=== PATIENT | female | born 1970 | race Caucasian/White ===

== ENCOUNTER 2017-03-29 13:31 | Emergency (ER) | payer OTHER ==
[~2017-03-29] VITALS: Ht 172.7 cm; Wt 72.7 kg
[2017-03-29 13:40] VITALS: BP 109/74; PULSE 109; RESP 18; O2SAT 95
--- NOTE | 2017-03-29 13:43 | ED.REPORT ---
HPI-Overdose/Alcohol Toxicity Date of Service March 29, 2017 ED Provider: The patient is an otherwise healthy female who was brought to the emergency department by EMS after her found her to be minimally responsive prior to arrival. The patient recently had a dental procedure and was in more pain than normal today. She took her normal chronic pain medication (2 tabs oxycodone 5 mg) at 1030 this morning and then took 3 more tabs shortly after. Medics administered Narcan which drastically improved the patient's condition. She is awake and able to answer questions at this time. She does complain of a minimal headache. Nursing Notes Stated Complaint: OVERDOSE Chief Complaint: Substance Abuse Nursing Notes Reviewed: Yes Allergies: Coded Allergies: No Known Allergies (Unverified , 03/29/17) General Time Seen by Provider: 13:50 Chief Complaint Ingestion, drug and amt (oxycodone, 25 mg in several hours) Modifying Factors: Accidental Hx Obtained From: Patient, EMS Arrived By: Ambulance Onset Occurred: 1 - 4 hours ago Symptom Duration: Duration unknown Progression Since Onset: Resolved Severity: Current: No pain currently Severity: Maximum: No pain Recent Healthcare: No recent hospitalization Similar Sx Previous: No Past Medical History Past Medical History Dental infection Past Surgical History Back surgery Social History Other Social History: Good social support, , Local resident Ambulatory Status Independent Review of Systems Review of Systems Note: +sleepiness, decreased responsiveness Neurologic: Reports: Change LOC, Headache Complete sys rev & neg: except as marked. Physical Exam Initial Vital Signs Vital Signs (First) Date Time Temp Pulse Resp B/P Pulse Ox O2 Delivery O2 Flow Rate FiO2 03/29/17 13:40 37.4 109 18 109/74 95 Room Air Initial VS: Reviewed Head / Eyes: Atraumatic, Normocephalic, PERRL ENT: Mucous membranes moist, Conjunctiva normal, No scleral icterus Neck: Supple, Non-tender, Full range of motion Lymphatic: No lymphadenopathy Extremities: Vascular intact, Neuro intact, No swelling, No tenderness Skin: Warm, Dry, No cyanosis General/Constitutional: Awake, Alert Respiratory / Chest: Atraumatic, Breath sounds NL, Breath sounds = bilat, No respiratory distress, No rales, No rhonchi, No wheezing Cardiovascular: Heart rate NL, Regular rhythm, Heart sounds NL, Cap refill not delayed, Peripheral circulation NL Abdomen: Atraumatic, Soft, Non-tender, No guarding, No rebound Neurologic: Oriented X3, Speech NL, No motor deficits, No sensory deficits Psychiatric: Affect NL, Mood NL, Not suicidal, Not homicidal Re-Eval/Medical Decision Med Decision/Clinical Course Overall the patient had a concerning clinical history today which was an overdose which required Narcan for reversal. After my bedside evaluation of her and discussion of our plan to monitor her for a period of time due to her recent Narcan use, she seemed pleasant. Shortly after our discussion, I was notified by staff that she eloped from the ER. Her was notified. Source of Hx: Old records, EMS Re-Evaluation/Progress #1: Time of Eval: 14:10 Re-Evaluation/Progress Note: The patient is not in her bed, she may have eloped. Re-Evaluation/Progress #2: Time of Eval: 14:33 Re-Evaluation/Progress Note: The patient has eloped. Counseled Regarding: Diagnosis, Need for follow-up, When/why to return to ED Discharge & Departure Impression: Primary Impression: Accidental overdose Encounter type: initial encounter Qualified Code: T50.901A - Poisoning by unspecified drugs, medicaments and biological substances, accidental ( unintentional), initial encounter Disposition: AGAINST MEDICAL ADVICE (eloped) Discharge Condition All VS Reviewed: Yes Condition: Stable Referrals: Carroll Bernardo MD (PCP) Scribe Attestation Portions of this note were transcribed by La Nena Ventura. I, Dr. Glasgow personally performed the history, physical exam and medical decision-making; I reviewed and confirmed the accuracy of the information in the transcribed note. Signed by: Katalina Lyons, 03/29/2017 at 1440. copies to: Carroll Bernardo MD, Timothy aCssy OBRIEN March 29, 2017 13:43 La Nena Ventura March 29, 2017 13:56
== END 2017-03-29 14:10 | disposition left against medical advice (07) ==
LOC: EDBD 13:31 → SED 13:31
DX: T40.2X1A Poisoning by other opioids, accidental (unintentional), initial encounter (principal); X58.XXXA Exposure to other specified factors, initial encounter; Y93.89 Activity, other specified; Y92.9 Unspecified place or not applicable; Y99.8 Other external cause status

== ENCOUNTER 2017-03-29 19:10 | Emergency (ER) | payer OTHER ==
--- NOTE | 2017-03-29 19:22 | ED.REPORT ---
HPI-General Illness Date of Service March 29, 2017 ED Provider: Dr. Combs Pt is a 46 y/o female w/ a hx of opiate abuse previously taking Suboxone presenting to the ED with her due to possible opiate overdose which occurred about 30 minutes ago. The patient was seen in the [facility] ED at 13:50 earlier today due to decreased level of consciousness. Her brought her in at that time and the history obtained indicated that she recently had a dental procedure for which she was prescribed oxycodone and was in more pain than normal today. She took her normal chronic pain medication (2 tabs oxycodone 5 mg) at 10:30 this morning and then took 3 more tabs shortly after. Medics administered Narcan which drastically improved the patient's condition. She was awake and able to answer questions by time of arrival and her only complaint was of a mild headache. The plan was to observe her for some hours but shortly after the interview she eloped. She apparently walked 2 blocks from the hospital to her home. The brought her in for this visit because of similar decreased responsiveness and unsteady gait. He does not know if she took more of the oxycodone but believes this is likely due to the similar presentation. He estimates the onset of current symptoms being 30 minutes prior to arrival. The thinks this incident was retaliation for him drinking after being sober from alcohol for a long time. She apparently stops taking Suboxone when she relapses. Further history was obtained after Narcan was administered. She apparently took 7x 30 mg oxycodone that she bought in [place] along with 2 others that she is uncertain whether are oxycodone or OxyContin. Further/personal history unable to be obtained secondary to current mental status. Nursing Notes Stated Complaint: POSSIBLE OD Chief Complaint: Substance Abuse Nursing Notes Reviewed: Yes Allergies: Coded Allergies: No Known Allergies (Unverified , 03/29/17) General Time Seen by MD: 19:24 Chief Complaint Other (possible OD) Hx Obtained From: Patient Unable to Obtain Hx: Patient condition, Mental status Arrived By: Walk-in Past Medical History Past Medical History Dental infection Hx opiate abuse previously taking Suboxone Past Surgical History Back surgery Smoking History Unknown if Ever Smoker Social History Opiate addiction Other Social History: Good social support, , Local resident Ambulatory Status Independent Review of Systems Unable to Obtain ROS Patient condition, Mental status Physical Exam Vital Signs Vital Signs Date Time Temp Pulse Resp B/P Pulse Ox O2 Delivery O2 Flow Rate FiO2 03/29/17 20:48 36.8 81 17 109/64 97 Room Air 03/29/17 20:21 76 17 100/61 98 Room Air 03/29/17 19:25 103 14 130/73 92 Room Air Initial VS: Reviewed ENT: Mucous membranes moist, Conjunctiva normal, No scleral icterus Neck: Supple, Full range of motion Respiratory: Breath sounds normal, Clear to auscultation, No respiratory distress Abdomen / GI: Soft, Non-tender, No guarding, No rebound, No distention Extremities: Vascular intact, Neuro intact, No swelling, No tenderness General/Constitutional: Awake, No acute distress, Cooperative, Not toxic appearing Responds to direct questions by answering yes and no. Does not provide history. Head / Eyes: Atraumatic, Normocephalic Pupils pinpoint Cardiovascular: Regular rhythm, Heart sounds NL, No gallop, No murmurs, No rubs Heart Rate / Rhythm: Positive: Tachycardia (mild) Skin: Atraumatic, Color NL, No rash No track whiting Neurologic: No motor deficits Responds to direct questions by answering yes and no Does not provide history PSYCH: Unable to assess Interpretation & Diagnostics Lab Results Interpretation Test 03/29/17 19:30 Hold Purple Top Tube Received (Received) Hold Blue Top Tube Received (Received) Hold [place] Top Tube Received (Received) Re-Eval/Medical Decision Med Decision/Clinical Course Patient to sleep AMA. Very specific instructions on risks of and complications of chronic hypoxia reviewed. Did try to give her a packet of intranasal Narcan to have at home. She left prior to this arriving from the pharmacy Time of Eval: 20:28 Re-Evaluation/Progress Note: Pt rechecked. Informed pt of need for admission. Pt understands and agrees with plan for admission. All questions addressed. Time of Eval: 20:58 Re-Evaluation/Progress Note: Patient now wants to leave AMA. Will have her sign an AMA form. Routine discharge instructions and RTER warnings given. Consultation : Referral / Consult Name: Gaetano Armenta MD Consulted With: Hospitalist Call Returned at: 20:27 Supervisor Vacuum [employer]: Will see patient, Agrees with eval, Agrees with plan, Accepts admit Counseled Regarding: Diagnosis, Lab results, Need for admission Discharge & Departure Primary Impression: Narcotic overdose Encounter type: initial encounter Injury intent: undetermined intent Qualified Code: T40.604A - Poisoning by unspecified narcotics, undetermined, initial encounter Disposition: AGAINST MEDICAL ADVICE Discharge Condition All VS Reviewed: Yes Condition: Stable Patient Instructions: Opioid Overdose (ED) Additional Instructions: You chose to leave against medical advice today. You should avoid narcotics. You have been given a narcotic kit. Should you have trouble breathing you can consider using this and your can help. Return to the emergency department for any new or worsening symptoms. Referrals: Carroll Bernardo MD (PCP) Scribe Attestation Portions of this note were transcribed by Igor Chakraborty. I, Dr. Combs personally performed the history, physical exam and medical decision-making; I reviewed and confirmed the accuracy of the information in the transcribed note. Signed by Katalina Vieyra, 03/29/171999 copies to: Carroll Bernardo MD, Shawna L MD March 29, 2017 19:22 IGOR CHAKRABORTY March 29, 2017 19:30
[2017-03-29 19:25] VITALS: BP 130/73; PULSE 103; RESP 14; O2SAT 92
[2017-03-29 20:21] VITALS: BP 100/61; PULSE 76; RESP 17; O2SAT 98
[2017-03-29 20:48] VITALS: BP 109/64; PULSE 81; RESP 17; O2SAT 97
[2017-03-29] MEDS ORDERED: _Naloxone 2 mg/2 mL 2 Syringe Kit (NASAL USE) NASAL PRN (20:55)
[2017-03-29] MEDS ORDERED: Polyethylene Glycol (PEG) 17 Gm Powder PO PRN (21:00)
[2017-03-29] MEDS ORDERED: Ondansetron 2 mg/mL 2 mL Inj IVPUSH PRN (21:00)
[2017-03-29] MEDS ORDERED: Alum-Mag Hydrox-Simeth 30 mL Suspension PO PRN (21:00)
--- NOTE | 2017-03-29 21:09 | PCM.HPMED ---
Subjective Date of Service March 29, 2017 Primary Provider: Admitting Physician: Primary Care Physician: Carroll Bernardo MD Attending Physician: Admit Status: From the Emergency Department Chief Complaint: Substance Abuse History of Present Illness: Per ED note: Pt is a 46 y/o female w/ a hx of opiate abuse previously taking Suboxone presenting to the ED with her due to possible opiate overdose which occurred about 30 minutes ago. The patient was seen in the [facility] ED at 13:50 earlier today due to decreased level of consciousness. Her brought her in at that time and the history obtained indicated that she recently had a dental procedure for which she was prescribed oxycodone and was in more pain than normal today. She took her normal chronic pain medication (2 tabs oxycodone 5 mg) at 10:30 this morning and then took 3 more tabs shortly after. Medics administered Narcan which drastically improved the patient's condition. She was awake and able to answer questions by time of arrival and her only complaint was of a mild headache. The plan was to observe her for some hours but shortly after the interview she eloped. She apparently walked 2 blocks from the hospital to her home. The brought her in for this visit because of similar decreased responsiveness and unsteady gait. He does not know if she took more of the oxycodone but believes this is likely due to the similar presentation. He estimates the onset of current symptoms being 30 minutes prior to arrival. The thinks this incident was retaliation for him drinking after being sober from alcohol for a long time. She apparently stops taking Suboxone when she relapses. Further history was obtained after Narcan was administered. She apparently took 7x 30 mg oxycodone that she bought in [place] along with 2 others that she is uncertain whether are oxycodone or OxyContin. Further/personal history unable to be obtained secondary to current mental status. Patient left AGAINST MEDICAL ADVICE prior to interview. H&P document canceled Allergies Coded Allergies: No Known Allergies (Unverified , 03/29/17) Home Medications Per outpatient records medications last updated 09/27/2016 Celexa 10 mg tablet daily Zyrtec PMH Dental infection History of opiate abuse, previously taking Suboxone Outpatient records last updated 09/27/2016 Cervicalgia Fatigue Back pain Dysthymia Hep C, chronic Right shoulder bursitis Depression Surgical History Back surgery Family History Per outpatient records: Father age 50 colon cancer Paternal grandfather Parkinson's disease Mother age 58 from stroke, also suffered from thyroid disorder and heart problems Paternal grandmother Parkinson's disease Social History Hx Alcohol Use: No Hx Substance Use: Yes Hx Tobacco Use: Yes Exam Vital Signs Vital Sign - Last Date Time Temp Pulse Resp B/P Pulse Ox O2 Delivery O2 Flow Rate FiO2 03/29/17 20:48 36.8 81 17 109/64 97 Room Air MARIANO IRWIN DO March 29, 2017 21:09
== END 2017-03-29 21:25 | disposition admitted as inpatient to this hospital (09) ==
LOC: SED 19:10
DX: T40.2X4A Poisoning by other opioids, undetermined, initial encounter (principal); Y93.89 Activity, other specified; Y92.89 Other specified places as the place of occurrence of the external cause; Y99.8 Other external cause status; R26.81 Unsteadiness on feet; R46.4 Slowness and poor responsiveness; Z53.20 Procedure and treatment not carried out because of patient's decision for unspecified reasons
CPT/HCPCS: 82948; 96374; 99284; J2310

== ENCOUNTER 2017-04-02 22:20 | Emergency (ER) | payer OTHER ==
[~2017-04-02] VITALS: Ht 172.7 cm; Wt 77.3 kg
[2017-04-02 22:29] VITALS: BP 122/78; PULSE 89; RESP 16; O2SAT 98
[2017-04-02 22:30] VITALS: BP 123/77; PULSE 85; RESP 15; O2SAT 93
[2017-04-02] MEDS ORDERED: 0.9% Sodium Chloride 1,000 ML IV ONE (22:42)
[2017-04-02] MEDS ORDERED: Naloxone 0.4 mg/mL 10 mL Inj IM PRN (22:45)
[2017-04-02 22:53] LABS: Mean Corpuscular Hemoglobin 30.3 pg (27.0-35.0); Mean Corpuscular Volume 92.6 fL (81-100)
--- NOTE | 2017-04-02 22:54 | ED.REPORT ---
HPI-Overdose/Alcohol Toxicity Date of Service Apr 02, 2017 ED Provider: Vijay Kebede MD The patient is a 46 year old female with a history of opioid abuse recently on Suboxone who presents to the ED accompanied by her after taking 120mg oxycodone 2-3 hours prior to arrival. The patient presents with slurred speech and decreased level of consciousness. She reportedly bought the oxycodone "off the street." The patient has stopped taking Suboxone since she recently relapsed on oxycodone. Her believes the patient relapsed because she was upset over his recent episode of drinking, which took place after he had been sober for some time. The patient was recently seen in the ED on 03/29/17 for a narcotic overdose which was reversed with Naloxone prior to the patient leaving AMA. Nursing Notes Stated Complaint: POSSIBLE OVERDOSE Chief Complaint: Substance Abuse Nursing Notes Reviewed: Yes Allergies: Coded Allergies: No Known Allergies (Unverified , 04/02/17) General Time Seen by Provider: 22:41 Chief Complaint Drug overdose Modifying Factors: Accidental Hx Obtained From: Patient, Spouse Arrived By: Walk-in Onset Occurred: 1 - 4 hours ago Symptom Duration: Since onset Severity: Current: No pain currently Severity: Maximum: No pain Pertinent Negative: Relieved by nothing Related History: Reports: Substance abuse Immunizations: Tetanus up to date Recent Healthcare: Recent doctor visit Similar Sx Previous: Yes Past Medical History Past Medical History Dental infection Hx opiate abuse on Suboxone Opioid overdose Past Surgical History Back surgery Social History Opiate addiction Other Social History: Good social support, , Local resident Ambulatory Status Independent Review of Systems Unable to Obtain ROS Patient condition, Mental status Physical Exam Initial Vital Signs Vital Signs (First) Date Time Temp Pulse Resp B/P Pulse Ox O2 Delivery O2 Flow Rate FiO2 04/02/17 22:29 36.8 89 16 122/78 98 Room Air Initial VS: Reviewed Neck: Supple, Full range of motion General/Constitutional: Well hydrated, Well nourished Patient frequently nods off Respiratory / Chest: Breath sounds NL, Breath sounds = bilat, No respiratory distress Normal respiration rate and oxygen saturation Cardiovascular: Heart rate NL, Regular rhythm, Heart sounds NL Speech: Positive: Slurred NEUROLOGIC: Frequently nods off Head / Eyes: Atraumatic, Normocephalic Pupils: Positive: Pinpoint Skin: Warm, Dry No injection sites or tracks Interpretation & Diagnostics URINE DRUG SCREEN: + Oxycodone Otherwise Negative Lab Results Interpretation Result Diagram: 04/02/17223404/02/17 2235 Test 04/02/17 22:35 04/02/17 23:10 White Blood Count 7.8th/mm3 (3.8-10.1) Red Blood Count 4.06mil/mm3 (3.90-5.20) Hemoglobin 12.3g/dL (12.0-15.6) Hematocrit 37.6% (35.0-46.0) Mean Corpuscular Volume 92.6fL (81-100) Mean Corpuscular Hemoglobin 30.3pg (27.0-35.0) Mean Corpuscular Hemoglobin Concent 32.7% (32.0-37.0) Red Cell Distribution Width 13.1% (12.3-15.4) Platelet Count 212bil/L (150-400) Hold Purple Top Tube Received (Received) Hold Blue Top Tube Received (Received) Sodium Level 141mEq/L (134-144) Potassium Level 4.2mEq/L (3.5-5.2) Chloride Level 102mEq/L (97-108) Carbon Dioxide Level 27mmol/L (18-29) Blood Urea Nitrogen 19mg/dL (6-24) Creatinine 0.80mg/dL (0.57-1.00) Estimat Glomerular Filtration Rate 111mL/min (>59) Glucose Level 126mg/dL (60-99) Calcium Level 9.7mg/dL (8.5-10.1) Total Bilirubin 0.3mg/dL (0.0-1.2) Aspartate Amino Transf (AST/SGOT) 37U/L (0-50) Alanine Aminotransferase (ALT/SGPT) 27U/L (0-32) Alkaline Phosphatase 70U/L (25-150) Total Protein 7.0g/dL (6.4-8.4) Albumin 4.2g/dL (3.4-5.0) Hold Red Top Tube Received (Received) Hold [employer] Top Tube Received (Received) Salicylates Level < 3.0ug/mL (30-250) Acetaminophen Level < 15.0ug/mL Rx (10-25) Alcohols < 10mg/dL (0-10) Hold Urine Received (Received) Lab Results Interpretation: Drug screen positive for opiates consistent with history of oxycodone ingestion ECG Interpretation ECG Interpretation: Sinus rhythm rate 84 Probable left atrial enlargement Time: 22:50 Interpreted by: ED physician Re-Eval/Medical Decision Med Decision/Clinical Course 46-year-old female who overdosed on 120 mg of immediate release oxycodone about 3 hours ago. She is now confused, semi-obtunded, and her pupils are pinpoint. She was given a dose of IV Narcan 0.4 mg with complete clearing of her symptoms. She is an outpatient [facility]. She has sufficient Suboxone at home to resume that medication and was encouraged to do so after 24 hours. She will return to the emergency room if there are further problems. She is released with her significant other who will observe her closely over the next several hours. Source of Hx: Old records Re-Evaluation/Progress : Time of Eval: 23:24 Patient Status: Condition improved Re-Evaluation/Progress Note: Patient is feeling better after the Narcan and requests to be discharged. Discussed with patient lab results, diagnosis, and plan for discharge. Follow-up and return to the ER instructions given. Patient agrees with plan for care and all questions were addressed. Counseled Regarding: Diagnosis, Lab results, Need for follow-up, When/why to return to ED Discharge & Departure Impression: Primary Impression: Narcotic overdose Encounter type: initial encounter Injury intent: accidental or unintentional Qualified Code: T40.601A - Poisoning by unspecified narcotics, accidental (unintentional), initial encounter )( Condition at Discharge: No danger to self Disposition: Home Discharge Condition All VS Reviewed: Yes Condition: Improved Patient Instructions: Opioid Overdose (ED) Additional Instructions: You need to be observed closely over the next 2-3 hours to make sure that the oxycodone overdose does not sedate you again. No opiates for 24 hours and then restart your Suboxone. Keep your upcoming scheduled appointment with [facility]. I will be in the emergency room again tomorrow night between 9 PM and 6 AM if you need to call me at [phone] for any questions. Referrals: Carroll Bernardo MD (PCP) Crit Care Except Billable Proc Time Spent: 30-74 minutes Services Performed: Patient management by me, Time spent at bedside, Reviewing test results, Reviewing imaging, Discussing patient care, Documentation in record, Time with [facility]/surrogate Critical Care Notes: Opiate overdose requiring one to one management with Narcan. Katalina Attestation Portions of this note were transcribed by Re Hernandez. I, Dr. Kebede, personally performed the history, physical exam, and medical decision-making; I reviewed and confirmed the accuracy of the information in the transcribed note. Signed by: Katalina Quintana, 04/03/2017, 01:15 copies to: Carroll Bernardo MD, Howard L MD Apr 02, 2017 22:53 RE HERNANDEZ Apr 02, 2017 23:05
[2017-04-02 23:00] VITALS: BP 125/59; PULSE 80; RESP 11; O2SAT 95
[2017-04-02 23:24] VITALS: BP 118/67; PULSE 84; RESP 19; O2SAT 96
[2017-04-02 23:35] VITALS: BP 133/79; PULSE 81; RESP 18; O2SAT 96
== END 2017-04-03 00:01 | disposition home or self-care (01) ==
LOC: SED 22:20
DX: T40.601A Poisoning by unspecified narcotics, accidental (unintentional), initial encounter (principal); X58.XXXA Exposure to other specified factors, initial encounter; Y93.9 Activity, unspecified; Y92.9 Unspecified place or not applicable; Y99.8 Other external cause status
CPT/HCPCS: 80053; 81002; 85027; 93005; 96360; 99284; G0480; J2310; J7030